=== PATIENT | male | born 1960 | race American Indian/Alaskan Native ===

== ENCOUNTER 2017-02-03 21:23 | Emergency (ER) | payer OTHER ==
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
[2017-02-04] MEDS ORDERED: NACL 0.9% IR ONE (00:32)
[2017-02-04] MEDS ORDERED: XYLOCAINE 1% MPF 5 mL INFILTRATI ONE (00:32)
[2017-02-04] MEDS ORDERED: MOTRIN PO ONE (00:32)
[2017-02-04 03:56] VITALS: BP 144/86
== END 2017-02-04 03:56 | disposition home or self-care (01) ==
LOC: ED 21:23
DX: S01.81XA Laceration without foreign body of other part of head, initial encounter (principal); G44.311 Acute post-traumatic headache, intractable; M54.2 Cervicalgia; V49.49XA Driver injured in collision with other motor vehicles in traffic accident, initial encounter; Y93.9 Activity, unspecified; Y92.9 Unspecified place or not applicable; Y99.9 Unspecified external cause status
CPT/HCPCS: 70450; 72125